=== PATIENT | female | born 1995 | race Caucasian/White ===

== ENCOUNTER → 2016-10-11 | Outpatient (CLI) | payer BC ==
--- NOTE | 2016-10-12 10:42 | KCIC ---
PROCEDURE MR of the left ankle HISTORY Left knee pain, generalized more so medially. Intermittent pain since 2013. COMPARISON None TECHNIQUE Standard noncontrast images are obtained. FINDINGS No evidence of a medial meniscal tear. No evidence of lateral meniscal tear. The anterior and the posterior cruciate ligaments are intact. Medial collateral ligament is intact. Iliotibial band unremarkable. Fibular collateral ligament, biceps femoris tendon and popliteus tendon are intact. Extensor mechanism is intact. Trace joint fluid. No evidence of an osteochondral loose body. Mild chondromalacia of the patella. There is lateral patellar tilt and subluxation. Tibial tubercle-trochlear groove distance measures 22 millimeter. IMPRESSION 1. Lateral patellar tilt and subluxation with 22 mm tibial tubercle lateralization. 2. Mild chondromalacia of the patella. Electronically signed by: Deep Magaña MD (Oct 12, 2016 10:41:51)
== END | disposition home or self-care (01) ==
LOC: KCIC MRI 16:47
PROVIDERS: ATTEND Physician Assistant Surgical
DX: M22.42 Chondromalacia patellae, left knee (principal); S83.092A Other subluxation of left patella, initial encounter; X58.XXXA Exposure to other specified factors, initial encounter; Y93.89 Activity, other specified; Y92.89 Other specified places as the place of occurrence of the external cause; Y99.8 Other external cause status
CPT/HCPCS: 73721